=== PATIENT | female | born 1960 | race Caucasian/White ===

== ENCOUNTER 2017-01-29 23:52 | Emergency (ER) | payer MEDICAID ==
[~2017-01-29] VITALS: Ht 175.3 cm; Wt 68.0 kg
--- NOTE | 2017-01-30 00:07 | NUR ---
pt ambulatory w/ steady gait, here for c/o SI w/ depression s/p recent from significant other x2 wks ago, states she has a knife in her purse and wants to kill herself, denies HI. AOx4 w/ resp even & unlabored, denies any pain, no sob w/ nad noted. pt placed on SI precautions, all clothes and belongings removed, placed in belongings bag at nurse's station. In room close to nurse's station for continuous monitoring. Urine obtained & sent to lab.
--- NOTE | 2017-01-30 00:22 | NUR ---
cardiac cath lab radiology technologist at bedside for blood draw.
[2017-01-30 00:39] LABS: BASOPHILS % (AUTO) 0.5 % (0.0-2.0); EOSINOPHILS # (AUTO) 0.1 /CMM (0.0-0.7); EOSINOPHILS % (AUTO) 2.1 % (0.0-6.0); HEMATOCRIT 26 % (33-45); HEMOGLOBIN 8.2 g/dL (11.5-14.8); LYMPHOCYTES % (AUTO) 71.2 % (20.0-44.0); MEAN CORPUSCULAR HEMOGLOBIN 24 PG (26.0-33.0); MEAN CORPUSCULAR HGB CONC 31 g/dl (31.0-36.0); MEAN CORPUSCULAR VOLUME 78 fL (82-100); MONOCYTES # (AUTO) 0.4 /CMM (0.1-1.30); MONOCYTES % (AUTO) 8.9 % (2.0-12.0); NEUTROPHILS # (AUTO) 0.7 /CMM (1.8-8.9); NEUTROPHILS % (AUTO) 17.3 % (43.0-81.0); PLATELET COUNT (AUTO) 295 /CMM (150-450); RDW COEFFICIENT OF VARIATION 28.3 (11.5-15.0); RED BLOOD CELL COUNT(AUTO) 3.39 MIL/uL (4.0-5.2); WHITE BLOOD COUNT (AUTO) 4.3 K/uL (4.3-11.0)
[2017-01-30 00:44] LABS: APPEARANCE,URINE CLEAR (CLEAR); BILIRUBIN,URINE NEGATIVE (NEGATIVE); BLOOD, URINE NEGATIVE Ery/uL (NEGATIVE); COLOR,URINE YELLOW (YELLOW); KETONES,URINE NEGATIVE (NEGATIVE); LEUKOCYTE ESTERASE ,URINE TRACE (NEGATIVE); NITRITE, URINE NEGATIVE (NEGATIVE); PROTEIN,URINE NEGATIVE (NEGATIVE); UGLUCOSE TRACE mg/dL (NEGATIVE); UROBILINOGEN,URINE 0.2 EU/dL (0.2)
[2017-01-30 00:52] LABS: BACTERIA,URINE None seen /HPF (None Seen); PREGNANCY TEST URINE QUAL NEGATIVE (NEGATIVE); RBC,URINE NONE SEEN /HPF (0-2); SQUAMOUS EPITHELIAL CELL,UR Few /HPF (None Seen); WBC,URINE 0-2 /HPF (0-3)
[2017-01-30 00:54] LABS: CALCIUM, SERUM 7.8 mg/dL (8.5-10.1); CREATININE 0.9 mg/dL (0.6-1.3); POTASSIUM 3.6 mmol/L (3.5-5.1)
[2017-01-30 00:58] LABS: BILIRUBIN,TOTAL 0.1 mg/dL (0.2-1.0); SALICYLATE 1.3 mg/dL (2.8-20.0); TOTAL PROTEIN, SERUM 7.5 g/dL (6.4-8.2)
[2017-01-30 01:18] LABS: EOSINOPHILS % (MANUAL) 3 % (0-4); LYMPHOCYTES % (MANUAL) 72 % (16-48); MONOCYTES % (MANUAL) 7 % (0-11.0); NEUTROPHILS % (MANUAL) 18 (42-76)
--- NOTE | 2017-01-30 01:40 | NUR ---
MISSY [place] at bedside for psych eval.
--- NOTE | 2017-01-30 02:27 | NUR ---
pt resting comfortably in bed w/ resp even & unlabored, nad noted. On continuous SI precautions. Awaiting placement.
--- NOTE | 2017-01-30 03:48 | NUR ---
pt continues to sleep in bed w/ resp even & unlabored, nad noted.
--- NOTE | 2017-01-30 04:11 | NUR ---
pt ambulatory w/ steady gait to restroom.
--- NOTE | 2017-01-30 05:40 | NUR ---
PT REPORT RECIVED FROM ANGIE LOUIS, PT IS ON THE MONITOR, SLEEPING IN BED IN NO APPARENT DISTRESS, WILL CONTINUE TO MONITOR.
--- NOTE | 2017-01-30 08:23 | NUR ---
SPOKE TO KRISTIN RN REGARDING PLAN FOR PT, PER KRISTIN [facility] AWARE OF PT, BUT NO BED AVAILABLE YET AND FOLLOWUP AT 1000.
--- NOTE | 2017-01-30 09:59 | NUR ---
SPOKE TO [facility] [phone] [facility], RE-FAXED PAPERWORK [phone]. AWAITING FOR CALL BACK WHEN BED IS AVAILABLE/TRANSFER INFORMATION.
--- NOTE | 2017-01-30 11:45 | NUR ---
CALLED [place] FOR AN UPDATE. EXPECTING A CALL BACK WHEN A BED IS AVAILABLE.
--- NOTE | 2017-01-30 16:02 | NUR ---
REPORT GIVEN TO JENNIFER LOUIS FROM [facility]
--- NOTE | 2017-01-30 16:08 | NUR ---
CALLED [facility] FOR TRANSPORT ETA OF 90 MINS WAS GIVEN.
[2017-01-30] MEDS ORDERED: AMLODIPINE BESYLATE 5 MG TABLET ONE (18:11)
[2017-01-30 18:41] VITALS: BP 170/113
[2017-01-30] MEDS ORDERED: AMLODIPINE BESYLATE 5 MG TABLET PO ONE (19:00)
== END 2017-01-30 16:29 ==
LOC: ER 23:54
DX: R45.851 Suicidal ideations (principal); F31.9 Bipolar disorder, unspecified; F14.10 Cocaine abuse, uncomplicated; I10 Essential (primary) hypertension; J45.909 Unspecified asthma, uncomplicated; F20.9 Schizophrenia, unspecified
CPT/HCPCS: 36415; 80048; 80076; 80305; 80329; 81001; 84703; 85025; 99285; A4606; G0480 ×2; Z7610; 81000-TC